=== PATIENT | male | born 1975 | race Two or more races ===

== ENCOUNTER 2017-09-04 10:16 | Emergency (ER) | payer OTHER ==
[~2017-09-04] VITALS: Ht 167.6 cm; Wt 66.7 kg
[2017-09-04 10:27] VITALS: BP 109/75
[2017-09-04] MEDS ORDERED: diphenhdrAMINE HCL 25 MG CAP PO ONE (11:30)
[2017-09-04] MEDS ORDERED: methylPREDNISolone SOD SUCC 125 MG/2 ML VL IM ONE (11:30)
== END 2017-09-04 12:19 | disposition home or self-care (01) ==
LOC: ER 10:16
DX: L25.8 Unspecified contact dermatitis due to other agents (principal); T42.6X5A Adverse effect of other antiepileptic and sedative-hypnotic drugs, initial encounter; F12.90 Cannabis use, unspecified, uncomplicated; Z79.82 Long term (current) use of aspirin; Y92.89 Other specified places as the place of occurrence of the external cause
CPT/HCPCS: 96372; 99283; J2930